=== PATIENT | male | born 1950 | race Caucasian/White ===

== ENCOUNTER → 2019-04-30 07:37 | Outpatient (CLI) | payer MEDICARE, OTHER, SELFPAY ==
--- NOTE | 2019-04-30 07:41 | CDU_ITS ---
Reason For Study: Bilateral Carotid Bruits Rt. Velocities/BP Lt. Velocities/BP Prox CCA 71/7 cm/sec. Prox CCA 103/12 cm/sec. Mid CCA 86/10 cm/sec. Mid CCA 84/12 cm/sec. Dist CCA 80/14 cm/sec. Dist CCA 82/16 cm/sec. Prox ICA 63/18 cm/sec. Prox ICA 87/17 cm/sec. Mid ICA 75/18 cm/sec. Mid ICA 86/19 cm/sec. Dist ICA 51/14 cm/sec. Dist ICA 88/22 cm/sec. Rt. ICA/CCA = 0.9. Lt. ICA/CCA = 1.0. Prox ECA 66 cm/sec. Prox ECA 72 cm/sec. Rt. Vert. 42/5 cm/sec. Lt. Vert. 51/13 cm/sec. Right Extracranial There is intimal thickening but no significant atherosclerotic plaque noted in the right common carotid artery. There is intimal thickening but no significant atherosclerotic plaque noted in the right internal carotid artery. There is no significant atherosclerotic plaque noted in the right external carotid artery. Antegrade flow is noted in the right vertebral artery. Left Extracranial There is intimal thickening but no significant atherosclerotic plaque noted in the left common carotid artery. There is heterogeneous, irregular atherosclerotic plaque noted in the left internal carotid artery. There is intimal thickening but no significant atherosclerotic plaque noted in the left external carotid artery. Antegrade flow is noted in the left vertebral artery. Procedure Carotid Duplex [id number]. Exam performed in department. Interpretation Summary Mild (<50%) stenosis right extracranial internal carotid. Mild (<50%) stenosis left extracranial internal carotid. Flow within the vertebral arteries is antegrade bilaterally. Ordering Physician: Martha Rosenthal Referring Physician: Martha Rosenthal Performed By: Devika Mckeon, MICHAEL, RVT
== END ==
PROVIDERS: Family Provider Internal Medicine; PCP Internal Medicine; Referring Provider Internal Medicine; Visit Provider Internal Medicine
DX: R09.89 Other specified symptoms and signs involving the circulatory and respiratory systems (principal)
CPT/HCPCS: 93880

== ENCOUNTER → 2019-10-16 08:56 | Outpatient (CLI) | payer MEDICARE, OTHER, SELFPAY ==
--- NOTE | 2019-10-16 09:00 | ECHOD_ITS ---
Reason For Study: Aortic murmur Procedure This was a 2D Doppler, Color Flow transthoracic echocardiogram. Exam performed in department. Left Ventricle Normal LV size. The estimated ejection fraction is 65 %. Diastolic function is indeterminate. No regional wall motion abnormalities noted. Right Ventricle Normal RV size. Normal systolic function. Atria Normal left atrium. Normal right atrium. No doppler evidence for ASD. Mitral Valve There is no mitral valve stenosis. Trivial mitral valve insufficiency. Tricuspid Valve There is no tricuspid stenosis. Trivial tricuspid valve insufficiency. Pulmonary artery systolic pressure is 35-40 mmHg. Aortic Valve Moderate diffuse aortic valve thickening. Moderate aortic stenosis. Mild (1+) aortic valve insufficiency. Pulmonic Valve There is no pulmonic valvular stenosis. No pulmonic valve insufficiency. Great Vessels Normal aortic root. Pericardium/Pleural No pericardial effusion. MMode/2D Measurements & Calculations LVIDd: 4.5 cm IVSd: 1.5 cm LVOT diam: 2.2 cm LVIDs: 3.3 cm LVPWd: 1.5 cm LVOT area: 3.8 cm2 RVDd: 3.7 cm FS: 26.3 % Ao root diam: 3.3 cm LAV(MOD-bp): 61.3 ml EDV(MOD-sp4): 145.4 ml LAV(MOD-bp) Indexed: 32.2 ml/m2 ESV(MOD-sp4): 66.0 ml LAV(MOD-sp2): 62.9 ml EF(MOD-sp4): 54.6 % LAV(MOD-sp4): 58.8 ml EDV(MOD-sp2): 140.5 ml SV(MOD-sp4): 79.4 ml SV(MOD-sp2): 74.0 ml EF(MOD-sp2): 52.7 % LA A4 area: 20.8 cm2 LA dimension(2D): 3.5 cm RA A4 area: 14.0 cm2 Doppler Measurements & Calculations MV A max mat: 63.7 cm/sec Lat Peak E' Mat: 8.8 cm/sec Med Peak E' Mat: 5.9 cm/sec Ao V2 max: 363.9 cm/sec AI max mat: 432.9 cm/sec LV V1 max: 138.8 cm/sec Ao max P.0 mmHg AI max P.0 mmHg LV V1 max P.7 mmHg Ao V2 mean: 262.0 cm/sec LV V1 mean P.2 mmHg Ao mean P.2 mmHg AI dec slope: 300.6 cm/sec2 LV V1 mean: 96.8 cm/sec Ao V2 VTI: 88.8 cm AI P1/2t: 421.8 msec LV V1 VTI: 33.6 cm LANA(I,D): 1.4 cm2 LANA(V,D): 1.4 cm2 SV(LVOT): 126.9 ml PA V2 max: 131.4 cm/sec TR max mat: 284.2 cm/sec TR max P.4 mmHg Interpretation Summary The estimated ejection fraction is 65 %. Diastolic function is indeterminate. Trivial tricuspid valve insufficiency. Moderate diffuse aortic valve thickening. Moderate aortic stenosis. Mild (1+) aortic valve insufficiency. Ordering Physician: Martha Rosenthal Referring Physician: Martha Rosenthal Performed By: Shanell Fraire RDCS
== END ==
PROVIDERS: PCP Internal Medicine; Referring Provider Internal Medicine; Visit Provider Internal Medicine
DX: I35.8 Other nonrheumatic aortic valve disorders (principal)
CPT/HCPCS: 93306

== ENCOUNTER → 2021-01-27 11:19 | Outpatient (CLI) | payer MEDICARE, OTHER, SELFPAY ==
--- NOTE | 2021-01-27 11:25 | RAD_ITS ---
STUDY: X-RAY - LUMBAR SPINE REASON FOR EXAM: Male, 70 years old. LOW BACK PAIN TECHNIQUE: 3 view(s) of the lumbar spine were obtained. COMPARISON: None FINDINGS: Normal lumbar lordosis. There is no substantial scoliosis. Minimal anterior listhesis of L5 on S1. There is multilevel endplate spondylosis of the lumbar vertebrae. There is multi-level degenerative disc disease with multi-level disc space narrowing. Facet joint osteoarthritis. The soft tissue structures are unremarkable. RAD/Lumbar Spine 2 or 3 Views IMPRESSION: Degenerative changes of the spine, as detailed above. Electronically Signed: Corby Otero MD at 15:40 EDT , Service support ,
== END ==
PROVIDERS: PCP Internal Medicine
DX: M47.816 Spondylosis without myelopathy or radiculopathy, lumbar region (principal)
CPT/HCPCS: 72100

== ENCOUNTER 2021-02-17 14:30 | Outpatient (RCR) | payer MEDICARE, OTHER, SELFPAY ==
[2020-11-15 08:56] VITALS: BMI 27.1
--- NOTE | 2021-01-03 10:47 | HP.PTEVAL_ITS ---
Patient's Visit Information KAYKAY ABREU is a 70 year old M referred to Physical Therapy by CAILIN BAILEY with a diagnosis of R TKA. Date of Evaluation: 01/03/21 Physical Therapist: Torres Bradley DPT, OCS, CSCS - Visit Plan Frequency: 2-3x /Week Duration: 4-6 Weeks Plan: 2-3x/week for 4-6 weeks for. 1. patellar mobs and rollout to HS and quad and stretch, PROM. 2. strength R LE. 3. gait and stair training. ice as needed(pt has ice machine at home and declined today - Subjective R tka 12/17/20 by / Loyd. Painful and could not walk prior and been screwed up for years. Surgery went well. Pt still in pain 09/18 anterior knee and p osterior. Standing too bart makes it hurt like hell. Sitting hurts anterior knee toothache. Sleeping is interrupted due to pain. Has cold water machine which helps. Pain pills help and take them every 6-8 hours. 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 No set return to work date but thought 3 months. Sits in chair with cold water. aDoes home ex of QS and PROM ext and heel slides. and slowly improving. No other ex except AP. Basic ADLs are done I, tub I, bathroom ad dress I. Like to go to range and shoot as he cannot put up targets, as it is too much walking on [place] ground. Not mowing zero turn 3 acres. Not driving yet. Has steps to basement. Doing one step at a time iwth L. - Objective Walks with cane in R UE I, Walks without cane with good gait pattern and no antalgia although R step length is long. Good bend of knee. Trasnfers I without UE. Steps reciprocal up with rail and L only descending due to ROM deficits. 47 WOMAC. -2 to 85 AROM R knee.0-130 L knee. Patella stiff on R vs L especially distally. Incision is healed well with steristrips in place and dry. HS ad quad max tight. strength is 21# R knee flex and 19# ext. girth 15.5 inches at patella and 18 inches 6 inch sp. 14 second TUG - Goals Goal 1:: 0-120 AROM R knee. Goal Time Frame: 4-6 Weeks Goal 2:: sleep without interruption from knee. Goal Time Frame: 4-6 Weeks Goal 3:: Walk and steps without deficits. Goal Time Frame: 4-6 Weeks Goal 4:: Pt I in management and appropriate HEP Goal Time Frame: 4-6 Weeks Goal 5:: Pt feel 90% back to normal activity including shooting. Goal Time Frame: 4-6 Weeks Goal 6:: Plan to return to work. Goal Time Frame: 4-6 Weeks - Rehabilitation Potential Physical Therapy Diagnosis: R TKA and s/p mobility deficits. Rehabilitation Potential: Good - Anticipated Interventions Patient/Client Instruction: Educate patient on: Condition, Plan of Care For the Purpose of:: To decrease pain, To improve muscle performance and motor function, To increase tolerance to activity/condition/position, To improve ability of physical actions for home/community/work/leisure Therapeutic Exercise to Include: Strength training, Postural training, Flexibilty training, Gait and locomotor training, Passive ROM, Active ROM For the Purpose of:: To decrease pain, To increase ROM, To improve muscle performance and motor function, To increase tolerance to activity/condition/position, To improve ability of physical actions for home/community/work/leisure, To improve gait and locomotor functions Manual Therapy Techniques to Include: Mobilization, Passive ROM, Soft tissue mob ilization For the Purpose of:: To increase ROM Cryotherapy (ice pack, ice massage): Yes For the Purpose of:: To increase ROM Thank you for the opportunity to evaluate your patient. For Medicare and Medicare HMO plans, please review the plan of care and approve it. It will need to be FAXED BACK to us at [phone] for Medicare purposes. For Medicare only, by signing this I certify the plan of care. Please let me know if there are questions or concerns regarding this plan of care. Physician Signature: Date:
--- NOTE | 2021-01-26 13:48 | HP.PTREVAL_ITS ---
CAILIN BAILEY, It has been my pleasure to treat KAYKAY ABREU over the last 10 visits for R TKA. Please see the progress note below for an update on the physical therapy plan of care! Subjective: Doing well, would like more motion. Mows yard with self propelled walk behind. Sleeps well. Walking well, steps tight on way down with R. Pain in the last week 2/10 , 0/10 at rest. Doing walking at home. 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 Objective/Function: 15.5 inch sp. 0-108. 44 WOMAC 12 TUG. Strength. ext 53# and fexion 49#. Walking well, steps some soreness coming down the steps but reciprocal with pain. Improved overall but continue therapy approriate for scarring and diminished ROM as he will need more ROM to do his job comfortably. Plan Plan: changed POC2-3x/week for 3-4 weeks for. 1. rollout and scar massage quad and proximal scar. 2. PROM adn flexion mobs,. 3. low sitting adn trasnfer off floor. Pt to do strengthenin otherwise on his own, please focus on flexion ROM. Goals approp, fair prognosis Balance/Gait/Functional tests - Balance/Special Test Scores Lower Extremity Functional Score: 40 Goals Goal 1:: 0-120 AROM R knee. Goal Time Frame: 4-6 Weeks Goal Progress: 108, approp Goal 2:: sleep without interruption from knee. Goal Time Frame: 4-6 Weeks Goal Progress: Goal Met Goal 3:: Walk and steps without deficits. Goal Time Frame: 4-6 Weeks Goal Progress: some pain descend, approp Goal 4:: Pt I in management and appropriate HEP Goal Time Frame: 4-6 Weeks Goal 5:: Pt feel 90% back to normal activity including shooting. Goal Time Frame: 4-6 Weeks Goal Progress: 85, approp Goal 6:: Plan to return to work. Goal Time Frame: 4-6 Weeks Goal Progress: needs to move near ground Anticipated Interventions Patient/Client Instruction: Educate patient on: Condition, Plan of Care For the Purpose of:: To decrease pain, To improve muscle performance and motor function, To increase tolerance to activity/condition/position, To improve ability of physical actions for home/community/work/leisure Therapeutic Exercise to Include: Strength training, Postural training, Flexibilty training, Gait and locomotor training, Passive ROM, Active ROM For the Purpose of:: To decrease pain, To increase ROM, To improve muscle p erformance and motor function, To increase tolerance to activity/condition/position, To improve ability of physical actions for home/community/work/leisure, To improve gait and locomotor functions Manual Therapy Techniques to Include: Mobilization, Passive ROM, Soft tissue mobilization For the Purpose of:: To increase ROM Cryotherapy (ice pack, ice massage): Yes For the Purpose of:: To increase ROM Please do not hesitate to contact me at [phone] by phone or if you have questions or concerns regarding this new plan of care! Sincerely, Torres Bradley, [place], OCS, CSCS
--- NOTE | 2021-02-17 15:16 | HP.PTDCSUM ---
It has been my pleasure to treat KAYKAY ABREU referred by CAILIN BAILEY, with the diagnosis of R TKA for a total of 16 visit(s). Discharge Date: 02/17/21 Please see the following information for a summary of their discharge status. Subjective: pt sees PT today. pt is RTW in 2 weeks. R knee Pain Intensity (Out of 10): 0 % Improvement: 100 Objective/Function: Recheck w/ PT after this session. pt is meeting all his goals and is getting up and down from the floor now. Indep w/ HEP, no questions. Goal 1:: 0-120 AROM R knee. Goal Progress: 108, approp Goal 2:: sleep without interruption from knee. Goal Progress: Goal Met Goal 3:: Walk and steps without deficits. Goal Progress: some pain descend, approp Goal 4:: Pt I in management and appropriate HEP Goal Progress: Goal Met Goal 5:: Pt feel 90% back to normal activity including shooting. Goal Progress: 85, approp Goal 6:: Plan to return to work. Goal Progress: needs to move near ground Plan: changed POC2-3x/week for 3-4 weeks for. 1. rollout and scar massage quad and proximal scar. 2. PROM adn flexion mobs,. 3. low sitting adn trasnfer off floor. Pt to do strengthenin otherwise on his own, please focus on flexion ROM. Goals approp, fair prognosis If there are questions or concerns regarding this patient's physical therapy, please feel free to call me at [phone]. Thank you for the referral of this patient. Sincerely, Torres Bradley, DPT, OCS, CSCS Balance/Gait/Functional tests - Balance/Special Test Scores Functional Gait Assessment Score: 29 % Disability: 3.3400 Lower Extremity Functional Score: 75 WOMAC Total Score: 1 WOMAC Percentage: 98.9600
== END 2021-02-17 19:00 | disposition home or self-care (01) ==
LOC: PT 14:30
PROVIDERS: PCP Internal Medicine
DX: M17.11 Unilateral primary osteoarthritis, right knee (principal)
CPT/HCPCS: 97110; 97140; 97162; 97164

== ENCOUNTER 2021-09-02 14:00 | Outpatient (RCR) | payer MEDICARE, OTHER, SELFPAY ==
--- NOTE | 2021-06-29 14:40 | HP.PTEVAL_ITS ---
Patient's Visit Information KAYKAY ABREU is a 70 year old M referred to Physical Therapy by Dr. Cedric Tai MD with a diagnosis of R reverse total shoulder arthroplasty. Date of Evaluation: 06/29/21 Physical Therapist: Antonio Sellers DPT - Visit Plan Frequency: 3x /Week Duration: 6-8 weeks Plan: Start with PROM of R shoulder (flexion top 130deg, ER to 30deg), may ice/heat for modalities. Cont. to monitor swelling under incision to ensure that it is reducing. Progress per protocol. IE: HEP: supine ER 2x10x5- demonstrated to spouse, supine shoulder flexion 2x10x5- demonstrated to spouse. seated elbow flexion/extension, wrist sup/pro x30/ea. seated scapular retraction 2x10. standing pendulum x30. above given as HEP - Subjective Pt. is here today for his initial evaluation with diagnosis of S/P R reverse total shoulder arthroplasty. DOS: 06/20/11. Pt. reports battling R shoulder pain for years and is having L shoulder pain, he reports most likely having to have that side replaced at some point. He arrives today with his sling on appropriately. Pt. reports having pain 4/10 in his shoulder. He is sleeping in a reclining chair currently. Pt. denies N/T, no chills, no fever. He has been icing and doing light exercises at home( HEP was given by physician). 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 He does have to do some over head work and lifting up to 60lbs, but more frequently in the 15-20# range. Pt. is hopeful to regain his motion, decrease his pain and get back to work without limitations. - Pain R shoulder Pain Intensity (Out of 10): 5 Pain Intensity Range: 3, 8 - Objective POSTURE: Pt. has R arm in guarded posture in sitting and standing. Slight an terior rotated R shoulder, improves with VCing. PALPATION: Pt. has well healing incision. He does have increased swelling around incision, pocketed like. We will continue to monitor. No signs of infection, except the increased swelling. NEURO: Pt. has normal sensation throughout BUes. ROM: R shoulder: PROM: flexion 95deg, ER 10deg. The rest not tested. L shoulder: AROM: flexion 160deg, abd 165d eg, functional ER C5, functional IR L5. MMT: LUE: 5/5 throughout, but did have associated pain. R shoulder- DNT, R elbow at least 3+/5 biceps did not test over pressure. - Balance/Special Test Scores Quick DASH Score: 90.9075 - Goals Goal 1:: LTG: Pt. to be I with HEP. Goal Time Frame: 4-6 Weeks Goal 2:: STG: pt. to sleep throughout the night without increase in symptoms allowing for increased quality of life. Goal Time Frame: 2 Weeks Goal 3:: STG: Pt. to have increased PROM to 130deg of flexion, and 30deg of ER. Goal Time Frame: 2-4 Weeks Goal 4:: LTG: Pt. to have increased R shoulder PROM to at least 160deg of flexion and abduction, increased PROM of ER to full and IR to full. Goal Time Frame: 4-6 Weeks Goal 5:: LTG: Pt. to have increased R shoulder strength to at least 4+/5 allowing for increased ability to complete ADLs and work related activities. Goal Time Frame: 6-8 Weeks - Rehabilitation Potential Physical Therapy Diagnosis: Pt. has signs and symptoms consistent with R reverse total shoulder arthroplasty. Pt. has subsequent hypomobility, weakness and increased pain. Pt. would benefit from PT to work on his ROM, decreasing pain and eventually progressing his strength in his R shoulder. Rehabilitation Potential: Excellent - Anticipated Interventions Patient/Client Instruction: Educate patient on: Condition, Plan of Care, Risk Factors, Benefits of Fitness Program For the Purpose of:: To improve decision making, To facilitate caregiver knowledge, To improve self management, To prevent re-injury, To improve ability to perform tasks related to life management Therapeutic Exercise to Include: Strength training, Power training, Body mechanics, Postural training, Flexibilty training, Passive ROM, Active ROM, Scapular Strength/Stabilization For the Purpose of:: To decrease pain, To decrease swelling/inflammation, To increase ROM, To improve nutrient delivery to tissue, To increase oxygenation perfusion, To improve muscle performance and motor function, To improve ability to perform ADL's, To improve ability of physical actions for home/community/work/leisure, To improve health of tissue, To decrease soft tissue restriction, To increase flexibility/ROM Manual Therapy Techniques to Include: Mobilization, Passive ROM For the Purpose of:: To decrease pain, To decrease swelling/inflammation, To increase ROM, To improve nutrient delivery to tissue, To increase oxygenation perfusion Cryotherapy (ice pack, ice massage): Yes Thermo therapy (hot pack): Yes Thank you for the opportunity to evaluate your patient. For Medicare and Medicare HMO plans, please review the plan of care and approve it. It will need to be FAXED BACK to us at [phone] for Medicare purposes. For Medicare only, by signing this I certify the plan of care. Please let me know if there are questions or concerns regarding this plan of care. Physician Signature: Date:
--- NOTE | 2021-08-05 12:20 | HP.PTREVAL ---
Dr. Cedric Tai MD, It has been my pleasure to treat KAYKAY ABREU over the last 15 visits for Right reverse TSR - 06/20/21. Please see the progress note below for an update on the physical therapy plan of care! Subjective: Pt. reports overall doing well. He reports having some soreness at times, but overall is doing well. Pt. reports no pain currently. He is to follow up with physician in 2 weeks. Objective/Function: AROM: flexion 165deg, abd 165deg, functional ER L1, functional ER C5. Pt. has slight substitution with with flexion and ER motions. MMT: 4/5 throughout, except ER 4-/5. With his AROM he does tend to have increased shoulder elevation to make up for his weakness. Pt. is overall progressing well with his ROM. Plan Plan: Cont. to work into flexion, scaption, ABD active ROM, controlled strengthening, light initially progressing as tolerated. Focus on deltoid as the muscle group for strength. Balance/Gait/Functional tests - Balance/Special Test Scores Quick DASH Score: 25.0000 Goals Goal 1:: LTG: Pt. to be I with HEP. Goal Time Frame: 4-6 Weeks Goal Progress: Progressing Goal 2:: STG: pt. to sleep throughout the night without increase in symptoms allowing for increased quality of life. Goal Time Frame: 2-4 Weeks Goal Progress: Goal Met Goal 3:: STG: Pt. to have increased PROM to 130deg of flexion, and 30deg of ER. Goal Time Frame: 2-4 Weeks Goal Progress: Goal Met Goal 4:: LTG: Pt. to have increased R shoulder PROM to at least 160deg of flexion and abduction, increased PROM of ER to full and IR to full. Goal Time Frame: 4-6 Weeks Goal Progress: Progressing Goal 5:: LTG: Pt. to have increased R shoulder strength to at least 4+/5 allowing for increased ability to complete ADLs and work related activities. Goal Time Frame: 6-8 Weeks Goal Progress: Progressing Anticipated Interventions Patient/Client Instruction: Educate patient on: Condition, Plan of Care, Risk Factors, Benefits of Fitness Program For the Purpose of:: To improve decision making, To facilitate caregiver knowledge, To improve self management, To prevent re-injury, To improve ability to perform tasks related to life management Therapeutic Exercise to Include: Strength training, Power training, Body mechanics, Postural training, Flexibilty training, Passive ROM, Active ROM, Scapular Strength/Stabilization For the Purpose of:: To decrease pain, To decrease swelling/inflammation, To increase ROM, To improve nutrient delivery to tissue, To increase oxygenation perfusion, To improve muscle performance and motor function, To improve ability to perform ADL's, To improve ability of physical actions for home/community/work/leisure, To improve health of tissue, To decrease soft tissue restriction, To increase flexibility/ROM Manual Therapy Techniques to Include: Mobilization, Passive ROM For the Purpose of:: To decrease pain, To decrease swelling/inflammation, To increase ROM, To improve nutrient delivery to tissue, To increase oxygenation perfusion Cryotherapy (ice pack, ice massage): Yes Thermo therapy (hot pack): Yes Please do not hesitate to contact me at [phone] by phone or if you have questions or concerns regarding this new plan of care! Sincerely, Antonio Sellers DPT
== END 2021-09-02 19:00 | disposition home or self-care (01) ==
LOC: PT 14:00
PROVIDERS: PCP Internal Medicine; Referring Provider Orthopaedic Surgery; Visit Provider Orthopaedic Surgery
DX: Z47.1 Aftercare following joint replacement surgery (principal); Z96.611 Presence of right artificial shoulder joint
CPT/HCPCS: 97110; 97140; 97161; 97164

== ENCOUNTER → 2021-11-18 | Outpatient (CLI) | payer MEDICARE, OTHER, SELFPAY ==
--- NOTE | 2021-11-18 08:48 | ECHOD_ITS ---
Reason For Study: AORTIC VALVE DISEASE Procedure This was a 2D Doppler, Color Flow transthoracic echocardiogram. Patient was scanned in supine position during reflux assessment. The exam was of adequate technical quality. Exam performed in department. Left Ventricle Normal LV size. Moderate concentric left ventricular hypertrophy. Left ventricular systolic function is normal. The estimated ejection fraction is 65 %. No evidence for diastolic dysfunction. No regional wall motion abnormalities noted. Right Ventricle Normal RV size. Normal systolic function. Atria Normal left atrium. Normal right atrium. No doppler evidence for ASD. Mitral Valve There is no mitral annular calcification. Normal mitral valve. Trivial mitral valve insufficiency. Tricuspid Valve Normal tricuspid valve. Trivial tricuspid valve insufficiency. Right ventricular systolic pressure estimated to be 44 mmHg. Aortic Valve Trisinus/trileaflet aortic valve. Moderate diffuse aortic valve thickening. Moderate diffuse aortic valve calcification. Severe aortic stenosis. Trivial aortic valve insufficiency. Pulmonic Valve The pulmonic valve is not well visualized. Great Vessels Normal sized aortic root. Pericardium/Pleural No pericardial effusion. MMode/2D Measurements & Calculations LVIDd: 4.9 cm IVSd: 1.5 cm LVOT diam: 2.0 cm LVIDs: 3.4 cm LVPWd: 1.4 cm LVOT area: 3.1 cm2 RVDd: 4.3 cm FS: 31.2 % Ao root diam: 3.1 cm LAV(MOD-bp): 59.8 ml LVAd ap4: 39.9 cm2 LAV(MOD-bp) Indexed: 32.1 ml/m2 LVLd ap4: 9.5 cm LAV(MOD-sp2): 63.2 ml EDV(MOD-sp4): 139.4 ml LAV(MOD-sp4): 49.9 ml EDV(sp4-el): 141.2 ml LVAs ap4: 21.7 cm2 LVLs ap4: 7.9 cm ESV(MOD-sp4): 52.8 ml ESV(sp4-el): 50.5 ml EF(MOD-sp4): 62.1 % EF(sp4-el): 64.3 % LVAd ap2: 37.4 cm2 SV(MOD-sp4): 86.6 ml SV(MOD-sp2): 87.9 ml LVLd ap2: 9.2 cm EDV(MOD-sp2): 133.8 ml EDV(sp2-el): 128.8 ml LVAs ap2: 19.4 cm2 LVLs ap2: 7.6 cm ESV(MOD-sp2): 45.9 ml ESV(sp2-el): 42.3 ml EF(MOD-sp2): 65.7 % SV(sp4-el): 90.8 ml LA dimension(2D): 4.2 cm LA A4 area: 18.6 cm2 RA A4 area: 20.7 cm2 Doppler Measurements & Calculations MV E max mat: 70.9 cm/sec Lat Peak E' Mat: 12.0 cm/sec Med Peak E' Mat: 8.6 cm/sec MV A max mat: 85.7 cm/sec E/E' lat: 5.9 E/E' med: 8.3 MV E/A: 0.83 Ao V2 max: 480.4 cm/sec AI max mat: 366.3 cm/sec LV V1 max: 120.0 cm/sec Ao max P.6 mmHg AI max P.4 mmHg LV V1 max P.8 mmHg Ao V2 mean: 358.5 cm/sec AI dec slope: 198.9 cm/sec2 LV V1 mean P.0 mmHg Ao mean P.8 mmHg AI P1/2t: 539.5 msec LV V1 mean: 80.8 cm/sec Ao V2 VTI: 128.9 cm LV V1 VTI: 33.4 cm LANA(I,D): 0.80 cm2 LANA(V,D): 0.77 cm2 SV(LVOT): 103.7 ml PA V2 max: 158.9 cm/sec TR max mat: 319.8 cm/sec TR max P.9 mmHg ECHO/Echo Complete Interpretation Summary Left ventricular systolic function is normal. The estimated ejection fraction is 65 %. Moderate concentric left ventricular hypertrophy. Trivial mitral valve insufficiency. Trivial tricuspid valve insufficiency. Severe aortic stenosis. Trivial aortic valve insufficiency. Right ventricular systolic pressure estimated to be 44 mmHg. No evidence for diastolic dysfunction. Ordering Physician: Jb Mckeon Referring Physician: Jb Mckeon Performed By: Kyung Farmer RCS
== END | disposition home or self-care (01) ==
LOC: CVS 08:47
PROVIDERS: PCP Internal Medicine; Referring Provider Nurse Practitioner Family; Visit Provider Nurse Practitioner Family
DX: I35.2 Nonrheumatic aortic (valve) stenosis with insufficiency (principal); I65.23 Occlusion and stenosis of bilateral carotid arteries
CPT/HCPCS: 93306

== ENCOUNTER 2021-12-13 06:57 | Day surgery (SDC) | payer MEDICARE, OTHER, SELFPAY ==
--- NOTE | 2021-12-05 13:55 | RAD_ITS ---
INDICATION: pre-operative eval. EXAMINATION/TECHNIQUE: X-RAY - XR Chest 2 Views COMPARISON: None. FINDINGS: The lungs are clear. Tortuous and calcified thoracic aorta. The heart is not enlarged. No pleural effusion or pneumothorax. Degenerative changes of the thoracic spine and shoulders. Right total shoulder arthroplasty. RAD/Chest PA and Lateral IMPRESSION: No acute radiographic abnormalities. Electronically Signed: Demarcus Schrader MD at 16:45 EDT ,
[2021-12-05 15:13] LABS: Absolute Lymphocyte Count 1.26 X10^3/uL (0.83-4.51); Absolute Neutrophil Count 8.4 X10^3/uL (2.0-7.7); Basophil# 0.07 X10^3/uL; Basophil% 0.7 % (0-1); Eosinophil# 0.11 X10^3/uL; Hematocrit 34.3 % (40-54); Hemoglobin 11.9 g/dL (13.0-16.5); Lymphocyte # 1.26 X10^3/ul (0.83-4.51); Mean Corp Hgb Conc 34.7 g/dL (32-36); Mean Corpuscular Hgb 32.9 pg (27.0-32.0); Mean Corpuscular Volume 94.8 fL (80-94); Mean Platelet Vol. 9.8 fl (6.2-12.0); Monocyte# 0.62 X10^3/uL; Monocyte% 5.9 % (0-10); NRBC Flagged by Analyzer 0 % (0-5); Neutrophil % 79.7 % (47-70); Platelet Count 180 K/mm3 (150-450); RBC Distribution Width CV 13.2 % (11.6-14.6); RBC Distribution Width SD 45.1 fl (35.1-43.9); Red Blood Count 3.62 M/mm3 (4.6-6.2); White Blood Count 10.5 K/mm3 (4.4-11.0)
[2021-12-05 15:20] LABS: Prothrombin Time (Protime)PT. 12.4 SECONDS (11.7-14.9)
[2021-12-05 15:21] LABS: Partial Thromboplast Time 26.6 Seconds (24.1-36.2)
[2021-12-05 15:49] LABS: Anion Gap 9 (5-15); BUN 31 mg/dL (7-18); BUN/Creat Ratio 16.4 RATIO (10-20); Calcium,Total 8.7 mg/dL (8.5-10.1); Chloride 104 mmol/L (98-107); Creatinine, Serum 1.89 mg/dL (0.70-1.30); EST Glomerular Filtration Rate 38 mL/min (>60); Est Glom Filt Rate - Afr Amer 46 mL/min (>60); Glucose 108 mg/dL (74-106); Potassium 4.3 mmol/L (3.5-5.1); Sodium Level 137 mmol/L (136-145)
[2021-12-09 10:30] VITALS: BMI 27.1
--- NOTE | 2021-12-10 11:57 | PCM.HP.BLA ---
History and Physical Date of Admission: 12/13/21 [facility] [address] [place], [place] [address] OFFICE VISIT Date of Service:? 06/06/21 MR#: [id number] Acct: [id number] Name:KAYKAY LEWIS Rep #: [id number] : 1950 Provider: JOSE Mckeon Age/Sex:? 70/M Location: [facility] [place] Status: Signed HPI [facility] History of Present Illness Details:? This is a 70-year-old white male who presents today for outpatient cardiovascular consultation based upon concerns of underlying aortic valve stenosis superimposed on hyperlipidemia and hypertension. He still states in June, he will be undergoing right shoulder replacement with Dr. Cedric Tai He states at Amlodipine 10mg he noted lower extremity edema and thus has reduced it to 5mg PO daily. He denies chest, arm, jaw, or neck discomfort. He denies symptoms of shortness of breath with exertion, shortness of breath at rest, orthopnea, PND, sudden weight gain, or bilateral lower extremity edema. He denies chronic cough. He states intermittent dizziness and lightheadedness. This is noted with position change. He does not lower blood pressure. He denies palpitations, lightheadedness, near syncope, or syncopal episodes. He denies claudication issues. He denies fever or chills. He denies blood in urine, blood in stool, or epistaxis. He denies myalgia. He denies unexplainable fatigue. His exercise tolerance is stable. Intake Vital Signs ? 06/06/2109:00 Height 5 ft 7 in Weight: 170 lb BMI 26.6 BP 122/62 H Blood Pressure Location Lt brachial Position Sitting Respiration 14 Pulse 74 Pulse Source Auscultation Intake Visit Reasons:?6 m fu Allergies No Known Allergies Allergy (Unverified 11/15/20 09:09) Medications aspirin 81 mg tablet,delayed release 81 mg PO DAILY 11/12/19 [History Confirmed 06/06/21] atorvastatin 20 mg tablet 20 mg PO QHS 11/12/19 [History Confirmed 06/06/21] folic acid 1 mg tablet 1 mg PO DAILY 11/12/19 [History Confirmed 06/06/21] hydrocodone-acetaminophen 5-325mg 5mg-325mg 1 tab PO Q6H PRN 11/12/19 [History Confirmed 06/06/21] methotrexate sodium 10 mg tablet 10 mg PO QWEEK 11/12/19 [History Confirmed 06/06/21] omeprazole 20 mg tablet,delayed release 20 mg PO DAILY 11/12/19 [History Confirmed 06/06/21] atenolol 25 mg tablet 25 mg PO DAILY 08/30/20 [History Confirmed 06/06/21] hydrochlorothiazide 25 mg tablet 25 mg PO DAILY #90 tab 01/26/21 [Rx Confirmed 06/06/21] amlodipine 5 mg tablet 5 mg PO DAILY #180 tab 04/27/21 [Rx Confirmed 06/06/21] lisinopril 20 mg tablet 20 mg PO DAILY? tab 06/06/21 [History Confirmed 06/06/21] PFSH Medical History?(Updated 06/06/21 @ 09:26 by Jb Mckeon PROJECT CONSULTANT, PROJECT CONSULTANT-C) Bilateral carotid artery stenosis Chronic pain Essential hypertension GERD (gastroesophageal reflux disease) Nonrheumatic aortic (valve) stenosis with insufficiency Pure hypercholesterolemia Rheumatoid arthritis with inflammatory polyarthropathy Surgical History?(Updated 06/06/21 @ 09:11 by Jb Mckeon PROJECT CONSULTANT, PROJECT CONSULTANT-C) History of appendectomy History of tonsillectomy History of total right knee replacement History of vasectomy Family History?(Updated 06/06/21 @ 09:11 by Jb Mckeon PROJECT CONSULTANT, PROJECT CONSULTANT-C) Brother Hypertension Social History? Smoking Status:? Former smoker how long ago did patient quit smoking:? 1986 alcohol intake:? current alcohol intake frequency: 0-2 drinks per day substance use type:? does not use caffeine:? Yes Type: coffee Number of servings: 2 ROS Const Const: Negative for fatigue, weakness, body ache, fever(s) or chills ENT ENT: Positive for dizziness; Negative for Nosebleed/epistaxis Cardio Chest Pain: No Palpitations: No Edema: None Muscle aches with walking: None Resp Respiratory: Negative for SOB with activity, SOB at rest, SOB orthopnea\SOB lying down, Cough or paroxysmal nocturnal dyspnea GI GI: Negative nausea, vomiting blood/hematemesis, bright, red blood in stools or black,tarry stools : Negative for hematuria or frequent nighttime urination/ nocturia Musc Musc: Negative for muscle aches/ myalgia Skin Skin: Negative non-healing lesions or rash Neuro Neuro: Positive for dizziness and lightheadedness; Negative for near syncope, syncope, orthostatic symptoms or weakness Endo Endo: Negative for fatigue Allergy Allergy/Immunology: Negative for rash Cardiology Exam Const Appearance: cooperative, healthy appearing, comfortable and no acute distress Nutritional Appearance: average body habitus and well nourished Orientation: alert, awake and oriented x3 Head Head: normal to inspection Ears: hearing grossly normal bilaterally Nose: external nose normal Face and Sinus: face symmetric Mouth: oral mucosae normal Eyes General: appearance normal, both eyes and all related structures Eyelids: eyelids normal EOM: EOM intact bilaterally Neck Neck: normal visual inspection and no JVD Carotids: normal carotid upstroke Chest Chest inspection: normal inspection of the chest, symmetric chest movement and normal respiratory effort; Negative cough Auscultation: Bilateral: Clear to Auscultation Cardio Rate: regular rate Rhythm: regular rhythm Heart sounds: S1 normal, S2 normal and murmur; Negative rub or gallop Murmur: Grade 3/6, soft, crescendo-decrescendo and LEONCIO loudest primary aortic area GI GI: normal to inspection Neuro General: patient alert, patient awake, patient oriented x3 and CN's II-XI intact bilaterally Skin Skin: no rashes or lesions noted Extremities Pulses: Normal: Right Posterior Tibial Pulse, Left Posterior Tibial Pulse, Right Radial Pulse and Left Radial Pulse Lower Extremity Edema: None: Bilateral Psych Psychological: normal affect Supplemental Info Supplemental Information Echocardiogram: 10-16-2019 Interpretation Summary The estimated ejection fraction is 65 %. Diastolic function is indeterminate. Trivial tricuspid valve insufficiency. Moderate diffuse aortic valve thickening. Moderate aortic stenosis. Mild (1+) aortic valve insufficiency. Carotid artery duplex study: 04/30/2019 Interpretation Summary Mild (<50%) stenosis right extracranial internal carotid. Mild (<50%) stenosis left extracranial internal carotid. Flow within the vertebral arteries is antegrade bilaterally. In 2016, based upon the report he was noted to have a left ventricle which was thought to be normal with an LVEF of 55 to 65%, a probably trileaflet moderately calcified aortic valve with mild to moderate stenosis and mild regurgitation with an aortic valve area reported at that time of 1.88 cm? with a peak gradient of 37 mmHg and a mean gradient of 21 mmHg.? The left atrium was reported as mildly dilated.? There was notation of trivial TR and an estimated RV systolic pressure of 30 mmHg. Labs: ?? ? No Data to Display Diagnostics: ?? ? Electrocardiogram ? Echocardiogram ? Pulmonary: ?? ? No Data to Display Assessment and Plan Assessment and Plan (1) Nonrheumatic aortic (valve) stenosis with insufficiency: ?Status:?Chronic ? ? ? Orders:?Orders: ? Echo Complete 6 Months ?Plan: His last echocardiogram in October 2019 showed an ejection fraction of 65% and moderate aortic valve stenosis with mild aortic valve insufficiency.? This appears stable on history and exam.? He was asked to continue current medical therapy and we will continue to monitor.? We will repeat echocardiogram prior to next office appointment for aortic valve stenosis surveillance unless indicated sooner. (2) Essential hypertension: ?Status:?Chronic ?Plan: Patient's blood pressure is well-controlled.? However, he does acknowledge episodes of lightheaded dizziness associate with lower blood pressure readings with systolics 80 mmHg.? Based on symptoms and lower readings, he was asked to reduce his lisinopril 20 mg p.o. daily.? He was asked to continue to monitor blood pressure and contact office with any new concerns for further medication adjustment. (3) Pure hypercholesterolemia: ?Status:?Chronic ?Plan: He states this is being monitored by primary care physician.? He will continue current statin medication.? His most recent lipid panel will be requested for continuity of care. (4) Preop cardiovascular exam: ?Status:?Acute ?Plan: From a cardiovascular standpoint, he may proceed with orthopedic surgery.? His last echocardiogram in October 2019 showed ejection fraction 65%, moderate aortic valve stenosis, and mild aortic valve insufficiency.? This appears stable.? He denies any exertional symptoms.? At this time, his dizziness is thought to be due to lower blood pressure.? He was asked to continue to follow with surgery team's recommendations regarding aspirin therapy.? Typically, this is held approximately 7-10 days prior to surgery if required. Plan Details Other Orders: ?Orders: ? Echo Complete 6 Months I65.23 ? Additional Comments: Thank you for allowing us to participate in the patients plan of care, if you have any questions please do not hesitate to call. This note was generated using a voice recognition system and there may be incorrect words, spelling or punctuation that were not noted when reviewing the office note prior to saving. Follow Up: ? ? Dr. Rosenthal?(Lipids) ? ? Keep as is?(PFM) Coding Level of Care Code Off vis,est,level 3 Diagnoses Nonrheumatic aortic (valve) stenosis with insufficiency? I35.2 Essential hypertension? I10 Pure hypercholesterolemia? E78.00 Preop cardiovascular exam? Z01.810 Coding Level of Care Code Off vis,est,level 3 Diagnoses Nonrheumatic aortic (valve) stenosis with insufficiency? I35.2 Essential hypertension? I10 Pure hypercholesterolemia? E78.00 Preop cardiovascular exam? Z01.810 06/06/21 0935 <Electronically signed by Jb Mckeon NP, NP-C> Date Jb Mckeon NP PROJECT CONSULTANT-C Cosigner Signature: Date (if applicable) CC:? Dr. Martha Rosenthal, DO ~ Assessment & Plan Addt'l Comments Addendum: 12-13-2021: The patient presented for outpatient cardiovascular follow-up with transthoracic echocardiogram on 11-18-2021. The results of the study are noted below. Reason For Study: AORTIC VALVE DISEASE Procedure This was a 2D Doppler, Color Flow transthoracic echocardiogram. Patient was scanned in supine position during reflux assessment. The exam was of adequate technical quality. Exam performed in department. Left Ventricle Normal LV size. Moderate concentric left ventricular hypertrophy. Left ventricular systolic function is normal. The estimated ejection fraction is 65 %. No evidence for diastolic dysfunction. No regional wall motion abnormalities noted. Right Ventricle Normal RV size. Normal systolic function. Atria Normal left atrium. Normal right atrium. No doppler evidence for ASD. Mitral Valve There is no mitral annular calcification. Normal mitral valve. Trivial mitral valve insufficiency. Tricuspid Valve Normal tricuspid valve. Trivial tricuspid valve insufficiency. Right ventricular systolic pressure estimated to be 44 mmHg. Aortic Valve Trisinus/trileaflet aortic valve. Moderate diffuse aortic valve thickening. Moderate diffuse aortic valve calcification. Severe aortic stenosis. Trivial aortic valve insufficiency. Pulmonic Valve The pulmonic valve is not well visualized. Great Vessels Normal sized aortic root. Pericardium/Pleural No pericardial effusion. MMode/2D Measurements & Calculations LVIDd: 4.9 cm? IVSd: 1.5 cm? LVOT diam: 2.0 cm LVIDs: 3.4 cm? LVPWd: 1.4 cm ? LVOT area: 3.1 cm2 RVDd: 4.3 cm ? FS: 31.2 % ? Ao root diam: 3.1 cm ? LAV(MOD-bp): 59.8 ml? LVAd ap4: 39.9 cm2 ? LAV(MOD-bp) Indexed: 32.1 ml/m2 ? LVLd ap4: 9.5 cm ? LAV(MOD-sp2): 63.2 ml ? EDV(MOD-sp4): 139.4 ml ? LAV(MOD-sp4): 49.9 ml ? EDV(sp4-el): 141.2 ml ? LVAs ap4: 21.7 cm2 ? LVLs ap4: 7.9 cm ? ESV(MOD-sp4): 52.8 ml ? ESV(sp4-el): 50.5 ml ? EF(MOD-sp4): 62.1 % ? EF(sp4-el): 64.3 % ? LVAd ap2: 37.4 cm2 ? SV(MOD-sp4): 86.6 ml? SV(MOD-sp2): 87.9 ml LVLd ap2: 9.2 cm EDV(MOD-sp2): 133.8 ml EDV(sp2-el): 128.8 ml LVAs ap2: 19.4 cm2 LVLs ap2: 7.6 cm ESV(MOD-sp2): 45.9 ml ESV(sp2-el): 42.3 ml EF(MOD-sp2): 65.7 % ? SV(sp4-el): 90.8 ml? LA dimension(2D): 4.2 cm ? LA A4 area: 18.6 cm2 ? RA A4 area: 20.7 cm2 Doppler Measurements & Calculations MV E max mat: 70.9 cm/sec? ? ? Lat Peak E' Mat: 12.0 cm/sec ? ? ? Med Peak E' Mat: 8.6 cm/sec MV A max mat: 85.7 cm/sec? ? ? E/E' lat: 5.9? E/E' med: 8.3 MV E/A: 0.83 ? Ao V2 max: 480.4 cm/sec? AI max mat: 366.3 cm/sec ? LV V1 max: 120.0 cm/sec Ao max P.6 mmHg ? AI max P.4 mmHg ? LV V1 max P.8 mmHg Ao V2 mean: 358.5 cm/sec ? ? ? AI dec slope: 198.9 cm/sec2? LV V1 mean P.0 mmHg Ao mean P.8 mmHg? AI P1/2t: 539.5 msec ? LV V1 mean: 80.8 cm/sec Ao V2 VTI: 128.9 cm ? LV V1 VTI: 33.4 cm LANA(I,D): 0.80 cm2 LANA(V,D): 0.77 cm2 ? SV(LVOT): 103.7 ml ? PA V2 max: 158.9 cm/sec? TR max mat: 319.8 cm/sec ? TR max P.9 mmHg ECHO/Echo Complete Interpretation Summary Left ventricular systolic function is normal. The estimated ejection fraction is 65 %. Moderate concentric left ventricular hypertrophy. Trivial mitral valve insufficiency. Trivial tricuspid valve insufficiency. Severe aortic stenosis. Trivial aortic valve insufficiency. Right ventricular systolic pressure estimated to be 44 mmHg. No evidence for diastolic dysfunction. The patient's case was discussed and reviewed with the patient. A recommendation was made to proceed with further evaluation of the patient's aortic valve anatomy and physiology/cardiovascular status with a diagnostic cardiac catheterization in anticipation of a tertiary care center evaluation for aortic valve replacement either percutaneously with TAVR versus surgically depending upon his overall cardiovascular findings. The procedure and risk were discussed with the patient. He was agreeable to this approach. In the interim, the patient denies a history of ongoing angina pectoris. There is been no report of obvious CHF or pulmonary edema. He has had no report of near syncope or syncope. He does state that he has noticed he becomes more short of breath and dyspneic and fatigued with activity including attempts at long walks. Thus he states he has minimized his activity. On examination he appears to be stable and in no acute distress. His respiratory examination demonstrates his lungs to be clear to auscultation and percussion bilaterally. His cardiovascular examination demonstrates a regular rhythm with a normal S1, diminished S2, and a grade 2/6 to 3/6 crescendo decrescendo systolic murmur at the lower left sternal border rating toward the LVOT/sternal notch area. Peripheral pulses: Carotid arteries: Delayed upstroke His previous noninvasive cardiovascular studies are as noted. At the present time the concern is the patient's aortic valve stenosis, which by transthoracic echocardiogram appears to be severe based upon his aortic valve peak velocity, his aortic valve mean gradient, and his aortic valve area, and the need for additional cardiovascular diagnostic studies with diagnostic cardiac catheterization which may provide additional information about his aortic valve anatomy and physiology but also with respect to his coronary anatomy in anticipation of a tertiary care center evaluation for aortic valve replacement. As noted above the cardiac catheterization procedure and risk were discussed with the patient. He was agreeable to this approach. Of note, with respect to the patient's preprocedure laboratory studies, there does appear to be an element of renal insufficiency. This will be taken into consideration with future adjustment of medications. It also be taken into consideration with respect to his cardiac catheterization procedure with respect to IV fluids and IV contrast use. The patient also has a history of hyperlipidemia. He will continue medical therapy as deemed appropriate. The patient has a history of hypertension. He will continue medical therapy as deemed appropriate with adjustment of medications taking into consideration his renal insufficiency. The patient has a history of carotid artery disease. He has undergone evaluation with a carotid artery duplex study in April 2019. At that time, per the peripheral vascular surgery report, his carotid artery disease was reported as mild. This note was generated using a voice recognition system and there may be incorrect words, spelling or punctuation that were not noted when reviewing the office note prior to saving.
[2021-12-13 09:31] LABS: Blood Gas Specimen Type VEN; VBG BASE EXCESS -1 mmol/L (-1.0-3.5); VBG BASE EXCESS 0 mmol/L (-1.0-3.5); VBG Bicarbonate 24 mmol/L (22-26); VBG Bicarbonate 25 mmol/L (22-26); VBG PO2 41 mmHg (25-40); VBG PO2 45 mmHg (25-40); VBG SO2 77 % (50-70); VBG SO2 81 % (50-70); VBG TCO2 26 mmol/L (23-33); VBG pCO2 38.8 mmHg (41-51); VBG pCO2 39.9 mmHg (41-51); VBG pH 7.39 (7.32-7.42); VBG pH 7.41 (7.32-7.42)
[2021-12-13 09:35] LABS: Base Excess -1 mmol/L (-2 to +2); Bicarbonate 23.9 mmol/L (22-26); Blood Gas Specimen Type ART; PO2 87 mmHG (75-100); SO2 97 % (95-99); Total Carbon Dioxide 25 mmol/L; pH 7.42 (7.35-7.45)
[2021-12-13 09:46] LABS: Blood Gas Specimen Type VEN; VBG BASE EXCESS -1 mmol/L (-1.0-3.5); VBG Bicarbonate 24 mmol/L (22-26); VBG PO2 42 mmHg (25-40); VBG SO2 76 % (50-70); VBG TCO2 26 mmol/L (23-33); VBG pH 7.37 (7.32-7.42)
--- NOTE | 2021-12-13 10:11 | CL.D_ITS ---
Patient Name: KAYKAY ABREU Study Date: 12/13/2021 Performing: King Villegas MD Ht: 66.92 inches 170 cm : 1950 Wt: 171.96 lbs 78 kg Age: 71 Gender: male BSA: 1.89 PROCEDURE(S) PERFORMED [id number])RHC/LHC/COR/LV CLINICAL PROFILE AND INDICATIONS Indications: Valvular Disease, Pre-Operative Evaluation Heart Failure: None Stress/Imaging Stress/Image Study Performed: No Angina Classification Anginal Classification w/in 2 Weeks: No symptoms CAD Presentations: No Sxs, no angina. CONCLUSIONS Right heart pressures - mildly elevated RVSP Intracardiac shunting: None Normal Left Ventricular End Diastolic Pressure Normal LV size, wall motion,and systolic function LVEF: by LV gram 65 % Normal coronary arteries Aortic Valve Calcification- Severe Aortic Valve Stenosis- Severe RECOMMENDATIONS Risk factor modification Medical therapy Surgery consult for valvular disease - possible TAVR DESCRIPTION OF PROCEDURE The patient arrived to the procedure lab. The risks and benefits of the procedure as well as a full d escription of our services here and current unavailability of surgical backup were fully explained to the patient and/or their significant other prior to the catheterization. The Timeout was completed, verifying the correct patient and procedure. The patient's procedural site was prepped and draped in the usual fashion. Local anesthetic was given subcutaneously to right radial region with Lidocaine 2% . Local anesthetic was given subcutaneously to right brachial region with Lidocaine 2%. Using a modif ied Seldinger technique, arterial access was obtained via the right radial artery, a 6Fr sheath was i nserted. Venous access was obtained via the right brachiocephalic vein, a 7Fr sheath was inserted. A 7Fr thermal dilution catheter was inserted and right heart pressures were recorded, it was then advan ha to PA position for cardiac outputs. O2 saturations were then obtained. Thermal dilution cardiac outputs were then recorded. Simultaneous pressures were then recorded. Left Ventricu lography was performed in OLIVAS projection using a 5 Fr. Pigtail catheter. LV to AO pullback pressures were then recorded. The Thermal dilution catheter was then removed. Left Coronary Artery selective an giography was performed in multiple views using a 5 Fr. 4.0 Woden catheter. Right Coronary Artery jaison ective angiography was then performed in multiple views using a 5 Fr. 4.0 Woden catheter. Right Coron linda Artery selective angiography was then performed in multiple views using a 5 Fr. JR 4 catheter.The arterial sheath was pulled and a TR Band was applied for hemostasis, sheath was flushed and aspirate d before D/C. 10cc of air. The venous sheath was then pulled and manual compression applied until hem ostasis achieved. sheath was flushed and aspirated before D/C CORONARY ANGIOGRAPHY DOMINANCE: Left Dominant LEFT HEART ASSESSMENT Left Ventricular Ejection Fraction: by LV Gram 65 % Normal LV wall motion Normal Left Ventricular End Diastolic Pressure LVEDP: 9 mmHg RIGHT HEART ASSESSMENT Thermal CO: 6.68 Thermal CI: 3.53 PW: 04/18 5 PA: 02/12 11 RV: 31/-1 3 RA: 10/10 0 PVR: 72 Aortic Valve Area: 1.03 Aortic Valve Index: 0.55 Aortic Valve Mean Gradient: 52.5 Mitral Valve Area: >3.50 Mitral Valve index: 1.85 Mitral Valve Mean Gradient: 13.5 Right Heart pressures - elevated (mild elevation of the RVSP) Intracardiac shunting: None LEFT MAIN: Angiographically normal LEFT ANTERIOR DESCENDING ARTERY: Angiographically normal CIRCUMFLEX ARTERY: Angiographically normal RAMUS: Angiographically normal RIGHT CORONARY ARTERY: Angiographically normal VALVE FINDINGS: Aortic Valve Calcification - severe Aortic Valve Stenosis - severe AORTIC ROOT: Angiographically normal COMPLICATIONS No Complications PROCEDURE MEDICATIONS Fentanyl 50 mcg IV Versed 1 mg IV Baby Aspirin (81mg) 1 Tabs PO @ 12/13/2021 07:16:50 Heparin given IA 12/13/2021 09:24:20 Verapamil 2.5mg, Ntg 100mcgs, 3000 units of Heparin given IA 12/13/2021 09:24:20 IV Fluids: .9 NaCl IV started @ 100 ml/hr 12/13/2021 07:16:59 SUMMARY OF HEMODYNAMIC DATA Time AIR REST ECG 07:16:00 RA 10/10 (0) 09:18:40 RV 31/-1, 3 09:18:58 PW 04/18 (5) PV 09:19:56 PA 02/12 (11) PA 09:20:13 LV 189/-15, 6 09:28:40 PW 04/22 (6) 09:28:40 LV 189/-14, 9 09:28:47 PW 9/7 (6) 09:28:47 LV 182/-8, 15 09:30:20 PW 15/16 (11) 09:30:20 LV 182/-11, 10 09:30:47 PW 9/8 (6) 09:30:47 LVp 181/1, 22 09:31:08 AOp 101/44 (66) 09:31:13 AO 99/44 (64) SA 09:31:57 PA 27/10 (15) 09:32:17 RV 38/-1, 6 09:32:31 RA 7/4 (3) 09:32:49 AO 83/44 (61) 09:37:47 Valve Area (c P-P/ms Time AIR REST 3.50 09:28:40 1.03 09:31:08 Type SV CO (l/m) CI (l/m/ HR Time AIR REST Thermal 111.30 6.68 3.53 60 07:15:50 Label % O2 Pres/Loc Time AIR REST IVC 80 SV 09:38:00 PA 77 PA 09:38:05 AO 97 PV 09:38:09 SVC 75 09:38:14 Signed By King Villegas MD On 12/13/2021 10:10:18 King Villegas MD
== END 2021-12-13 14:15 | disposition home or self-care (01) ==
LOC: CLSP 06:59
PROVIDERS: Nurse Practitioner Family; PCP Internal Medicine; Referring Provider Internal Medicine Cardiovascular Disease; Visit Provider Internal Medicine Cardiovascular Disease
DX: I35.2 Nonrheumatic aortic (valve) stenosis with insufficiency (principal); M06.4 Inflammatory polyarthropathy; I10 Essential (primary) hypertension; E78.00 Pure hypercholesterolemia, unspecified; K21.9 Gastro-esophageal reflux disease without esophagitis; Z79.82 Long term (current) use of aspirin; Z79.899 Other long term (current) drug therapy; Z87.891 Personal history of nicotine dependence
CPT/HCPCS: 36415; 71046; 80048; 82803; 85025; 85610; 85730; 93005; 93456; 99152; 99153; J7030; C1751; C1769; C1894; Q9967

== ENCOUNTER 2022-04-06 14:23 | Emergency (ER) | payer MEDICARE, OTHER, SELFPAY ==
[2022-04-06 14:23] VITALS: BP 160/85; PULSE 74; RESP 16; TEMP 36.7; O2SAT 97; BMI 27.6
--- NOTE | 2022-04-06 14:38 | RAD_ITS ---
STUDY: X-RAY - RIGHT HAND, ATTENTION FOURTH FINGER REASON FOR EXAM: Male, 71 years old. Laceration with digit distally. TECHNIQUE: 3 view(s) of the finger were obtained. COMPARISON: None. FINDINGS: Normal metacarpal head. Normal metacarpophalangeal joint. Normal proximal phalanx. Normal middle phalanx. Tiny avulsion fracture at the tuft of the distal phalanx of the fourth digit with overlying soft tissue laceration. Normal proximal interphalangeal joint. Normal distal interphalangeal joint. RAD/Finger(s) Min 2 Views IMPRESSION: Tiny avulsion fracture at the tuft of the distal phalanx of the fourth digit with overlying soft tissue laceration. Electronically Signed: Corby Otero MD at 15:11 EDT ,
--- NOTE | 2022-04-06 14:38 | EX.ED.GENINJ ---
HPI History of Present Illness Chief Complaint: Laceration Informant: patient Narrative Narrative: 2-year-old male presenting to the emergency department with a right hand injury. The patient states that he was working on his lawnmower and the deck came down and injured the right ring finger. He notes that most of the nail is gone and that is bleeding. Unknown last tetanus. Tetanus Immunization: Unknown [facility] Medical History Bilateral carotid artery stenosis Chronic pain Essential hypertension GERD (gastroesophageal reflux disease) History of left heart catheterization (LHC) (~12/13/21) History of transcatheter aortic valve replacement (TAVR) (~02/09/22) Nonrheumatic aortic (valve) stenosis with insufficiency Pure hypercholesterolemia Rheumatoid arthritis with inflammatory polyarthropathy Home Medications aspirin 81 mg tablet,delayed release (Adult Low Dose Aspirin) 81 mg PO DAILY 11/12/19 [History Last Taken 12/13/21] atorvastatin 20 mg tablet 20 mg PO QHS 11/12/19 [History Last Taken 12/13/21] folic acid 1 mg tablet 1 mg PO DAILY 11/12/19 [History Last Taken Unknown] omeprazole 20 mg tablet,delayed release 20 mg PO DAILY 11/12/19 [History Last Taken 12/13/21] atenolol 25 mg tablet 25 mg PO DAILY ord by Dr. Rosenthal 08/30/20 [History Last Taken 12/13/21] lisinopril 20 mg tablet 20 mg PO DAILY 06/06/21 [History Last Taken 12/13/21] hydrochlorothiazide 25 mg tablet 25 mg PO DAILY #90 tabs 11/21/21 [Rx Last Taken 12/13/21] Lactobacillus rhamnosus GG 10 billion cell capsule (Culturelle) 1 cap PO DAILY 12/23/21 [History Last Taken Unknown] cholecalciferol (vitamin D3) 125 mcg (5,000 unit) tablet (Vitamin D3) 125 mcg PO DAILY 12/23/21 [History Last Taken Unknown] methotrexate sodium 2.5 mg tablet 15 mg PO QWEEK 12/23/21 [History Last Taken Unknown] oxycodone-acetaminophen 5 mg-325 mg tablet 1 tab PO TID PRN 12/23/21 [History Last Taken Unknown] amlodipine 10 mg tablet 10 mg PO DAILY #90 tabs 04/06/22 [Rx Last Taken Unknown] cephalexin 500 mg capsule 500 mg PO Q6 #20 CAPSULES 04/06/22 [Rx Last Taken Unknown] Allergy/AdvReac Type Severity Reaction Status Date / Time No Known Allergies Allergy Verified 04/06/22 14:23 Family History Brother Hypertension Surgical History History of appendectomy History of tonsillectomy History of total right knee replacement History of vasectomy Social History Smoking Status: Former smoker how long ago did patient quit smokin alcohol intake: current alcohol intake frequency: 0-2 drinks per day substance use type: does not use caffeine: Yes Type: coffee Number of servings: 2 ROS ROS ED Constitutional Constitutional ED: Denies chills or weight loss Eyes Eyes: Denies change in vision or diplopia ENT ENT ED: Denies ear pain, rhinorrhea or sore throat Cardiovascular Cardiovascular: Denies chest pain, orthopnea, palpitations or racing heartbeat Respiratory/Chest Respiratory/Chest: Denies cough, dyspnea or orthopnea Gastrointestinal Gastrointestinal: Denies abdominal pain, diarrhea, nausea or vomiting Genitourinary Genitourinary ED: Denies dysuria, hematuria or urinary frequency Musculoskeletal Musculoskeletal: Reports other Details: See HPI ; Denies arthralgias or myalgias Integumentary Denies abscess or rash Neurologic Neurologic: Denies headache(s) or weakness Psychiatric Psychiatric: Denies anxiety, depression, suicidal ideation or suicidal thoughts Endocrine Endocrinology: Denies polydipsia, polyphagia or polyuria Allergic/Immunologic Allergic/Immunologic ED: Denies mouth swelling, tongue swelling or urticaria EXAM Physical Exam Const Vital Signs: 04/06/22 14:23 Temperature 98.1 F Temperature Source Temporal Pulse Rate 74 Respiratory Rate 16 Blood Pressure 160/85 H Blood Pressure Mean 110 Pulse Ox 97 Oxygen Delivery Method Room Air Positive well nourished and well developed General Appearance ED: well developed HEENT Reports normocephalic, head/scalp atraumatic and moist mucous membranes Eyes PERRL and EOMs intact bilaterally Neck no lymphadenopathy, supple and no JVD Resp normal respiratory effort and clear to auscultation bilaterally Cardio regular rate, regular rhythm and no murmurs GI normal to inspection, nondistended, normoactive bowel sounds and non-tender Palpation: soft Back/Spine no CVA tenderness and normal ROM Extremity normal to inspection General Extremety ED: Negative for edema General Extremity: Negative for edema Neuro oriented x3 and CN's II-XII intact bilaterally Sensorium / Orientation: alert Motor Exam: strength 5/5 throughout Psych mental status grossly normal Mood & Affect: Negative for depressed or tearful Skin no rashes or lesions noted and no wounds MDM MDM MDM Narrative Medical decision making narrative: My impression of the finger x-ray is a small avulsion fracture at the tuft of the distal phalanx. Radiology concurs. The finger was digitally blocked using bupivacaine. Once adequate anesthesia was obtained most of the nail was removed but the proximal point appeared uninjured and was able to be salvaged. There is complete removal of the nail bed that is exposed. The wound was washed with Shur-Clens closed using simple interrupted 5-0 Ethilon sutures. He will be placed on Keflex. Stitches will need to be removed in 10 days. He was advised that the nail may or may not return to its baseline. Radiography Diagnostic Testing: Clinical Impression(s) from Imaging Studies Finger X-Ray 04/06/22 14:38 IMPRESSION: Tiny avulsion fracture at the tuft of the distal phalanx of the fourth digit with overlying soft tissue laceration. Electronically Signed: Corby Otero MD at 15:11 EDT , Discharge Plan Triage Chief Complaint: Laceration ED Provider: Dontae Bucio Dx/Rx/DC Orders Clinical Impression: Avulsion of nail of left ring finger, Open fracture of tuft of distal phalanx of finger Instructions: ED Fracture, Finger, Open, ED Detached Fingernail or Toenail Prescriptions: New cephalexin [cephalexin] 500 mg capsule 500 mg PO Q6 Qty: 20 0RF No Action atorvastatin 20 mg tablet 20 mg PO QHS aspirin [Adult Low Dose Aspirin] 81 mg tablet,delayed release (DR/EC) 81 mg PO DAILY folic acid 1 mg tablet 1 mg PO DAILY omeprazole 20 mg tablet,delayed release (DR/EC) 20 mg PO DAILY lisinopril 20 mg tablet 20 mg PO DAILY oxycodone-acetaminophen 5-325 mg tablet 1 tab PO TID PRN Label Comments: TAKE 1 TABLET BY MOUTH THREE TIMES DAILY NEEDED methotrexate sodium 2.5 mg tablet 15 mg PO QWEEK Label Comments: TAKE 6 TABLETS orally once a week cholecalciferol (vitamin D3) [Vitamin D3] 125 mcg (5,000 unit) tablet 125 mcg PO DAILY Culturelle 10 billion cell capsule 1 cap PO DAILY amlodipine 10 mg tablet 10 mg PO DAILY Qty: 90 3RF atenolol 25 mg tablet 25 mg PO DAILY hydrochlorothiazide 25 mg tablet 25 mg PO DAILY Qty: 90 3RF Primary Care Provider: Martha Rosenthal Referrals: Martha Rosenthal DO [Primary Care Provider] - 10 Day for suture removal Disposition Disposition: Home, Self Care
[2022-04-06] MEDS: Bupivacaine Mpf 0.5% 30 ML VIAL INFILT (15:15)
[2022-04-06] MEDS: Diphth,Pertuss(Acell),Tet Vac 0.5 ML Vial IM (15:30)
== END 2022-04-06 16:05 | disposition home or self-care (01) ==
PROVIDERS: Emergency Provider Emergency Medicine; PCP Internal Medicine; Visit Provider Emergency Medicine
DX: S62.634B Displaced fracture of distal phalanx of right ring finger, initial encounter for open fracture (principal); W28.XXXA Contact with powered lawn mower, initial encounter; I10 Essential (primary) hypertension; E78.00 Pure hypercholesterolemia, unspecified; Z79.82 Long term (current) use of aspirin; Z79.899 Other long term (current) drug therapy; Z87.891 Personal history of nicotine dependence
CPT/HCPCS: 11730; 73140; 99283

== ENCOUNTER 2022-08-04 11:00 | Outpatient (RCR) | payer MEDICARE, OTHER, SELFPAY ==
--- NOTE | 2022-06-01 11:55 | HP.PTEVAL_ITS ---
Patient's Visit Information KAYKAY ABREU is a 71 year old M referred to Physical Therapy by Dr. Cedric Tai MD with a diagnosis of Reverse Total Shoulder 05/22/22. Date of Evaluation: 06/01/22 Physical Therapist: Georgina Zamarripa DPT - Visit Plan Frequency: 3x /Week Duration: 4 Weeks Plan: Left Reverse Total Shoulder 05/22/22- protocol in folder ([facility] Reverse Total Shoulder Protocol on website). HEP Given IE: Posture, Scapular Retractions, Pendulums, Biceps AROM, Jointer Machine, Table Walk away gently - Subjective Patient 05/22/22 Left Reverse Total Shoulder- had the Right one done Jun 2021- Stayed over night- headed home- has help at home. Worst: 03/20 Right now 6-12/18. Feels like an abscess tooth and if he moves it feels like it stabbed you. Agg: anything. Wears the sling all the time- takes it off to shower- then he is jodi dy to put it back on. Eases: putting the sling back on, Percocet. Has an ice machine but its painful. Best: 06/20. Pain is in the anterior shoulder and radiates into the chest and down to the elbow. No N/T in the finger. Does have some neck discomfort that comes and goes- muscle spasm 1-2x since surgery but nothing like prior. No BRODY, blurred vision or dizziness. Sleep in recliner- sleeps with an icepack on it-hard to get comfortable and isn't sleeping well-but does not normally sleep in bed. Fully I prior to surgery. Saw MD on Sunday- dissolvable stitches-looks good- took x-rays and told him to start rehab. Goals: get back to fully Indep and target shoot. PMHx: Only change in meds is increase dose of Percocet. No change in PMHx. - Objective Posture: FH, RS- increased guarding of the left UE with sling intact. Observation: incision healing well- no s/s of infection- does have bruising down the upper and forearm. Palpation: tender throughout anterior shoulder- medial border of the scapula- upper trap to the cervical spine. ROM: Elbow/Wrist/Hand: WFL- mild soreness with elbow flexion/extn, Shoulder: PROM: Flexion: 80 degrees, Abd: 90 degrees, IR: to belly, ER: neutral. Strength: Scap: fair minus- Shoulder isometric submax: 4/5 at neutral, Elbow: 4+/5, Wrist: 5/5 Jointer Machine: Left: 60 Right: 90 - Balance/Special Test Scores Quick DASH Score: 56.8175 - Goals Goal 1:: Patient will be I with HEP and progression Goal Time Frame: 4-6 Weeks Goal 2:: Patient will demo functional AROM of the left shoulder (as protocol allows) Goal Time Frame: 4-6 Weeks Goal 3:: Patient will maintain proper posture t/o tx session to demo increased scap s/s Goal Time Frame: 4-6 Weeks Goal 4:: Patient will report 80% improvement Goal Time Frame: 4-6 Weeks - Rehabilitation Potential Physical Therapy Diagnosis: Patient presents with hypomobility s/p Reverse Total Shoulder- he has decreased ROM, Scapular and UE strength/stabilization and muscular endurance leading to poor posture and decreased ability to perform ADL's. Rehabilitation Potential: Good - Anticipated Interventions Patient/Client Instruction: Educate patient on: Benefits of Fitness Program Therapeutic Exercise to Include: Strength training, Endurance training, Balance training, Coordination, Agility training, Body mechanics, Postural training, Flexibilty training, Passive ROM, Active ROM, Dynamic Lumbar Stabilization, Scapular Strength/Stabilization Cryotherapy (ice pack, ice massage): Yes Thermo therapy (hot pack): Yes Ultrasound (thermal/non thermal): No Thank you for the opportunity to evaluate your patient. For Medicare and Medicare HMO plans, please review the plan of care and approve it. It will need to be FAXED BACK to us at [phone] for Medicare purposes. For Medicare only, by signing this I certify the plan of care. Please let me know if there are questions or concerns regarding this plan of care. Physician Signature: Date:
--- NOTE | 2022-07-07 11:14 | HP.PTREVAL ---
Dr. Cedric Tai MD, It has been my pleasure to treat KAYKAY ABREU over the last 13 visits for Reverse Total Shoulder 05/22/22. Please see the progress note below for an update on the physical therapy plan of care! Subjective: Patient reports the should is doing good- the shoulder aches but doing exercises- more uncomfortable than pain. 5-6/10 depending on movement. Feels he needs more strength to continue improvement Objective/Function: Posture: good throughout0- no guarding of the left UE. ROM: Flexion: 160 degrees, Abd: 150 degrees, IR: belt line, ER: 30 degrees. Strength: Flexion: 25. Extn:27. Abd: 18. Add: 22. ER:5. IR: 11. Palpation: not tender to touch Plan Plan: 07/07/22: Cont 3x a week for 4 weeks with progression of protocol. Left Reverse Total Shoulder 05/22/22- protocol in folder ([facility] Reverse Total Shoulder Protocol on website). HEP Given IE: Posture, Scapular Retractions, Pendulums, Biceps AROM, Mixer Operator Hot Metal, Table Walk away gently Balance/Gait/Functional tests - Balance/Special Test Scores Quick DASH Score: 27.2725 Goals Goal 1:: Patient will be I with HEP and progression Goal Time Frame: 4-6 Weeks Goal 2:: Patient will demo functional AROM of the left shoulder (as protocol allows) Goal Time Frame: 4-6 Weeks Goal 3:: Patient will maintain proper posture t/o tx session to demo increased scap s/s Goal Time Frame: 4-6 Weeks Goal 4:: Patient will report 80% improvement Goal Time Frame: 4-6 Weeks Anticipated Interventions Patient/Client Instruction: Educate patient on: Benefits of Fitness Program Therapeutic Exercise to Include: Strength training, Endurance training, Balance training, Coordination, Agility training, Body mechanics, Postural training, Flexibilty training, Passive ROM, Active ROM, Dynamic Lumbar Stabilization, Scapular Strength/Stabilization Cryotherapy (ice pack, ice massage): Yes Thermo therapy (hot pack): Yes Ultrasound (thermal/non thermal): No Please do not hesitate to contact me at [phone] by phone or if you have questions or concerns regarding this new plan of care! Sincerely, Georgina Zamarripa DPT
--- NOTE | 2022-08-04 11:53 | HP.PTDCSUM_ITS ---
It has been my pleasure to treat KAYKAY ABREU referred by Dr. Cedric Tai MD, with the diagnosis of Reverse Total Shoulder 05/22/22 for a total of 24 visit(s). Discharge Date: Please see the following information for a summary of their discharge status. Subjective: Patient reports that he is really happy with the progress- he is not in pain but more fatigue. He is back to work in the 2nd week of August. He has a membership at [employer] and has no questions on continuation of exercises. Left snoulder Pain Intensity (Out of 10): 2 % Improvement: 75 Objective/Function: Posture: good throughout- no guarding of the left UE. ROM: Flexion: 180 degrees, Abd: 160 degrees, IR: belt line, ER: 50 degrees. Strength: Scap: fair minus, Isometric Strength: 4+/5, Elbow: 5/5 Palpation: not tender to touch Goal 1:: Patient will be I with HEP and progression Goal 2:: Patient will demo functional AROM of the left shoulder (as protocol allows) Goal 3:: Patient will maintain proper posture t/o tx session to demo increased scap s/s Goal 4:: Patient will report 80% improvement Plan: 08/04/22: Discharge to I HEP- encouraged to call if questions or concerns. 07/07/22: Cont 3x a week for 4 weeks with progression of protocol. Left Reverse Total Shoulder 05/22/22- protocol in folder ([facility] Reverse Total Shoulder Protocol on website). HEP Given IE: Posture, Scapular Retractions, Pendulums, Biceps AROM, Rate Inserter, Table Walk away gently If there are questions or concerns regarding this patient's physical therapy, please feel free to call me at [phone]. Thank you for the referral of this patient. Sincerely, Georgina Zamarripa, DPT Balance/Gait/Functional tests - Balance/Special Test Scores Quick DASH Score: 27.2725
== END 2022-08-04 13:08 | disposition home or self-care (01) ==
LOC: PT 11:00
PROVIDERS: PCP Internal Medicine; Referring Provider Orthopaedic Surgery; Visit Provider Orthopaedic Surgery
DX: Z96.612 Presence of left artificial shoulder joint (principal); M12.812 Other specific arthropathies, not elsewhere classified, left shoulder
CPT/HCPCS: 97110; 97140; 97162; 97164

== ENCOUNTER 2023-10-03 15:00 | Outpatient (RCR) | payer MEDICARE, OTHER, SELFPAY ==
--- NOTE | 2023-07-26 12:00 | HP.PTEVAL_ITS ---
Patient's Visit Information Visit Information Visit Information: KAYKAY ABREU is a 72 year old M referred to Physical Therapy by Dr. Cedric Tai MD with a diagnosis of S/P REVERSE ARTHROPLASTY OF RIGHT SHOULDER. Date of Evaluation: 07/26/23 Physical Therapist: Jose Freeman, PT, Cert MDT, OCS Visit Plan Frequency: 2x /Week Duration: 6-8 WEEKS Plan: S/P REVISION RTS WITH CUP ON 07/16/23 SEE MAK S/P REVERSE TSR SLING 4 WEEKS PT INTERVENTIONS INTIALLY PROM MANUAL THERAPY ,PROGRESS TO ARROM AND STRENGTHENING PER MAK,CP/MHP Subjective Subjective: This 72 y/o male presents to physical therapy with s/p reverse arthroplasty right shoulder. Patient had revision TSR on 07/16/[address] Tai at [facility]. Patient was d/c home with sling for 4weeks . Last Sunday07/20/23 recommended PT . Patient surgery with revision to replace cup went from 2 mm to 9mm . Patient August 14 . Patient burning pain . Patient has edema anterior aspect and severe ecchymosis.. Patient denies pain dull ache. Denies paresthesia/tingling. Patient had initial revere TSR 2 years ago. Most recently 2021 reverse TSR. Patient limitations with ADLS and housework tasks and self hygiene. Medication: precaution. Prior to surgery and post surgery x-rays. Sleeping okay . Patient goal to return to prior level of activity full ROM. SOCAIL: VOACTION: Cable Pain Right: Pain Intensity (Out of 10): 2 Pain Intensity Range: 10 Objective Objective: POSTURE: mild forward posture SKIN: ecchymosis ,note small opening draining EDEMA: mod edema anterior shoulder pocket ( Dr wheatley) PROM : shoulder flexion 100 degrees ,ER 30 degrees, Elbow /wrist WFL NEURO: denies paresthesia/tingling Balance/Special Test Scores Quick DASH Score: 70.4525 Goals Goal 1:: I with HEP for reverse TSR Goal Time Frame: 6-8 Weeks Goal 2:: Patient to improve AROM shoulder flexion/abduction by 130 degrees to improve function ADLS Goal Time Frame: 6-8 Weeks Goal 3:: Patient to improve peak force deltoid 10-15# force to improve ADLS and function Goal Time Frame: 6-8 Weeks Goal 4:: Patient to demonstrate 60% improvement with improved function with ADLS and housework tasks Goal Time Frame: 8-12 Weeks Goal 5:: Patient to improve quick dash by 5-10 points to improve QOL and function. Rehabilitation Potential Physical Therapy Diagnosis: This patient had revision TSR with replacing cup 07/16/23 with edema ,bruising ,decrease ROM and strength which impairs function and ADLS thus benefit from skilled PT Rehabilitation Potential: Good Anticipated Interventions Patient/Client Instruction: Educate patient on: Condition and Plan of Care For the Purpose of:: To decrease pain, To increase ROM, To improve muscle performance and motor function, To improve ability to perform ADL's, To increase tolerance to activity/condition/position, To improve ability of physical actions for home/community/work/leisure, To improve health of tissue, To decrease soft tissue restriction, To increase flexibility/ROM, To reduce risk of recurrence and To improve tolerance to ADL's Therapeutic Exercise to Include: Strength training, Flexibilty training, Passive ROM, Active ROM and Scapular Strength/Stabilization For the Purpose of:: To decrease pain, To increase ROM, To improve muscle performance and motor function, To improve ability to perform ADL's, To increase tolerance to activity/condition/position, To improve performance and independence with ADL's, To improve ability of physical actions for home/community/work/leisure, To improve health of tissue, To decrease soft tissue restriction, To increase flexibility/ROM, To assume or resume ADL's and To improve tolerance to ADL's Manual Therapy Techniques to Include: Passive ROM For the Purpose of:: To increase ROM, To improve health of tissue and To decrease soft tissue restriction Text: Thank you for the opportunity to evaluate your patient. For Medicare and Medicare HMO plans, please review the plan of care and approve it. It will need to be FAXED BACK to us at [phone] for Medicare purposes. For Medicare only, by signing this I certify the plan of care. Please let me know if there are questions or concerns regarding this plan of care. Physician Signature:_ Date:
--- NOTE | 2023-08-23 16:04 | HP.PTREVAL_ITS ---
Re-Evaluation Intro: Dr. Cedric Tai MD, It has been my pleasure to treat KAYKAY ABREU over the last 9 visits for S/P REVERSE ARTHROPLASTY OF RIGHT SHOULDER. Please see the progress note below for an update on the physical therapy plan of care! Subjective Subjective: Doing well Objective Objective/Function: AROM SHOULDER: shoulder flexion 140 degrees ,135 abd ,ER MMT: ( peak force) anterior 7.6 , lateral 7.5 * Will cont to benefit from skilled PT to improve strength and AROM ,patient has progressed with ROM and strength thus new goals have been established * Plan Plan Plan: S/P REVISION RTS WITH CUP ON 07/16/23 SEE PROTOCOFELIA S/P REVERSE TSR S/P 5WEEKS 08/19 PT INTERVENTIONS INTIALLY PROM MANUAL THERAPY ,PROGRESS TO ARROM AND STRENG THENING PER MAK,CP/MHP Balance/Gait/Functional tests Balance/Special Test Scores Quick DASH Score: 34.0900 Goals Goals Goal 1:: I with HEP for reverse TSR Goal Time Frame: 6-8 Weeks Goal Progress: Progressing Goal 2:: Patient to improve AROM shoulder flexion/abduction by 150 degrees to improve function ADLS( new goals) Goal Time Frame: 6-8 Weeks Goal 3:: Patient to improve peak force deltoid 10-15# force to improve ADLS and function Goal Time Frame: 6-8 Weeks Goal Progress: Progressing Goal 4:: Patient to demonstrate 80% improvement with improved function with ADLS and housework tasks(new goal,) Goal Time Frame: 8-12 Weeks Goal 5:: Patient to improve quick dash by 5-10 points to improve QOL and function. Goal Progress: Progressing Anticipated Interventions Anticipated Interventions Patient/Client Instruction: Educate patient on: Condition and Plan of Care For the Purpose of:: To decrease pain, To increase ROM, To improve muscle performance and motor function, To improve ability to perform ADL's, To increase tolerance to activity/condition/position, To improve ability of physical actions for home/community/work/leisure, To improve health of tissue, To decrease soft tissue restriction, To increase flexibility/ROM, To reduce risk of recurrence and To improve tolerance to ADL's Therapeutic Exercise to Include: Strength training, Flexibilty training, Passive ROM, Active ROM and Scapular Strength/Stabilization For the Purpose of:: To decrease pain, To increase ROM, To improve muscle performance and motor function, To improve ability to perform ADL's, To increase tolerance to activity/condition/position, To improve performance and independence with ADL's, To improve ability of physical actions for home/community/work/leisure, To improve health of tissue, To decrease soft tissue restriction, To increase flexibility/ROM, To assume or resume ADL's and To improve tolerance to ADL's Manual Therapy Techniques to Include: Passive ROM For the Purpose of:: To increase ROM, To improve health of tissue and To decrease soft tissue restriction Re-Evaluation Ending Re-evaluation ending: Please do not hesitate to contact me at [phone] by phone or if you have questions or concerns regarding this new plan of care! Sincerely, Jose Freeman, PT, Cert MDT, OCS
--- NOTE | 2023-09-20 16:29 | HP.PTREVAL ---
Re-Evaluation Intro: Dr. Cedric Tai MD, It has been my pleasure to treat KAYKAY ABREU over the last 15 visits for S/P REVERSE ARTHROPLASTY OF RIGHT SHOULDER. Please see the progress note below for an update on the physical therapy plan of care! Subjective Subjective: Seen happy with progress need to work on strength Objective Objective/Function: Objective/Function: AROM SHOULDER: shoulder flexion 150 degrees ,140 abd ,ER MMT: ( peak force) anterior 16.8 , lateral 15.5 * Will cont to benefit from skilled PT to improve strength and AROM ,patient has progressed with ROM and strength thus new goals have been established and goals are appropriate and adjusted* Plan Plan Plan: S/P REVISION RTS WITH CUP ON 07/16/23 SEE PROTOCAL S/P REVERSE TSR S/P 7WEEKS 09/02 Focus on strengthening PT INTERVENTIONS PROM MANUAL THERAPY ,PROGRESS TO ARROM AND STRENGTHENING PER MAK,CP/MHP Balance/Gait/Functional tests Balance/Special Test Scores Quick DASH Score: 31.8175 Goals Goals Goal 1:: I with HEP for reverse TSR Goal Time Frame: 6-8 Weeks Goal Progress: Progressing Goal 2:: Patient to improve AROM shoulder flexion/abduction by 150 degrees to improve function ADLS( new goals) Goal Time Frame: 6-8 Weeks Goal 3:: Patient to improve peak force deltoid 10-15# force to improve ADLS and function Goal Time Frame: 6-8 Weeks Goal Progress: Progressing Goal 4:: Patient to demonstrate 80% improvement with improved function with ADLS and housework tasks(new goal,) Goal Time Frame: 8-12 Weeks Goal 5:: Patient to improve quick dash by 5-10 points to improve QOL and function. Goal Progress: Progressing Anticipated Interventions Anticipated Interventions Patient/Client Instruction: Educate patient on: Condition and Plan of Care For the Purpose of:: To decrease pain, To increase ROM, To improve muscle performance and motor function, To improve ability to perform ADL's, To increase tolerance to activity/condition/position, To improve ability of physical actions for home/community/work/leisure, To improve health of tissue, To decrease soft tissue restriction, To increase flexibility/ROM, To reduce risk of recurrence and To improve tolerance to ADL's Therapeutic Exercise to Include: Strength training, Flexibilty training, Passive ROM, Active ROM and Scapular Strength/Stabilization For the Purpose of:: To decrease pain, To increase ROM, To improve muscle performance and motor function, To improve ability to perform ADL's, To increase tolerance to activity/condition/position, To improve performance and independence with ADL's, To improve ability of physical actions for home/community/work/leisure, To improve health of tissue, To decrease soft tissue restriction, To increase flexibility/ROM, To assume or resume ADL's and To improve tolerance to ADL's Manual Therapy Techniques to Include: Passive ROM For the Purpose of:: To increase ROM, To improve health of tissue and To decrease soft tissue restriction Re-Evaluation Ending Re-evaluation ending: Please do not hesitate to contact me at [phone] by phone or if you have questions or concerns regarding this new plan of care! Sincerely, Jose Freeman, PT, Cert MDT, OCS
--- NOTE | 2024-01-14 12:56 | HP.PTDCSUM ---
Discharge Summary D/C summary: It has been my pleasure to treat KAYKAY ABREU referred by Dr. Cedric Tai MD, with the diagnosis of S/P REVERSE ARTHROPLASTY OF RIGHT SHOULDER for a total of 19 visit(s). Discharge Date: Please see the following information for a summary of their discharge status. Subjective Subjective: Doing well Pain Right: Pain Intensity (Out of 10): 0 Overall Improvement % Improvement: 80 Objective Objective/Function: AROM SHOULDER: shoulder flexion 150 degrees ,140 abd ,ER MMT: ( peak force) anterior 16.8 , lateral 15.5 Goals Goal 1:: I with HEP for reverse TSR Goal Progress: Progressing Goal 2:: Patient to improve AROM shoulder flexion/abduction by 150 degrees to improve function ADLS( new goals) Goal 3:: Patient to improve peak force deltoid 10-15# force to improve ADLS and function Goal Progress: Progressing Goal 4:: Patient to demonstrate 80% improvement with improved function with ADLS and housework tasks(new goal,) Goal 5:: Patient to improve quick dash by 5-10 points to improve QOL and function. Goal Progress: Progressing Plan Plan: d/c \S/P REVISION RTS WITH CUP ON 07/16/23 SEE MAK S/P REVERSE TSR S/P 7WEEKS 09/02 Focus on strengthening PT INTERVENTIONS PROM MANUAL THERAPY ,PROGRESS TO ARROM AND STRENGTHENING PER DENNIS CORADO/MHP D/C Information d/c sentence: If there are questions or concerns regarding this patient's physical therapy, please feel free to call me at [phone]. Thank you for the referral of this patient. Sincerely, Jose Freeman, PT, Cert MDT, OCS Balance/Gait/Functional tests Balance/Special Test Scores Quick DASH Score: 31.8175 Improvement % Improvement: 80
== END 2023-10-03 19:00 | disposition home or self-care (01) ==
LOC: PT 15:00
PROVIDERS: PCP Internal Medicine; Referring Provider Orthopaedic Surgery; Visit Provider Orthopaedic Surgery
DX: Z96.611 Presence of right artificial shoulder joint (principal)
CPT/HCPCS: 97110; 97140; 97162

== ENCOUNTER → 2023-11-30 | Outpatient (CLI) | payer MEDICARE, OTHER, SELFPAY ==
--- NOTE | 2023-11-30 08:49 | CDU_ITS ---
Reason For Study: Carotid Atherosclerosis Rt. Velocities/BP Lt. Velocities/BP Prox CCA 76/14 cm/sec. Prox CCA 99/17 cm/sec. Mid CCA 88/16 cm/sec. Mid CCA 92/22 cm/sec. Dist CCA 79/19 cm/sec. Dist CCA 79/22 cm/sec. Prox ICA 61/17 cm/sec. Prox ICA 90/27 cm/sec. Mid ICA 75/24 cm/sec. Mid ICA 97/28 cm/sec. Dist ICA 67/21 cm/sec. Dist ICA 94/31 cm/sec. Rt. ICA/CCA = 0.9. Lt. ICA/CCA = 1.1. Prox ECA 73/9 cm/sec. Prox ECA 101/14 cm/sec. Rt. Vert. 45/12 cm/sec. Lt. Vert. 49/15 cm/sec. Right Extracranial There is heterogeneous, irregular atherosclerotic plaque noted in the right common carotid artery. There is intimal thickening but no significant atherosclerotic plaque noted in the right internal carotid artery. There is no significant atherosclerotic plaque noted in the right external carotid artery. Antegrade flow is noted in the right vertebral artery. Left Extracranial There is intimal thickening but no significant atherosclerotic plaque noted in the left common carotid artery. There is heterogeneous, irregular atherosclerotic plaque noted in the left internal carotid artery. There is heterogeneous, smooth atherosclerotic plaque noted in the left external carotid artery. Antegrade flow is noted in the left vertebral artery. Procedure Carotid Duplex 20841. This is a Carotid Duplex examination using B-mode, color flow and specral Doppler. Exam performed in department. VL/Carotid Duplex Ultrasound Interpretation Summary Intimal thickening at the proximal right internal carotid artery with less than 50% stenosis Less than 50% stenosis right external carotid artery Minimal irregular plaque at the proximal left internal carotid artery with less than 50% stenosis Less than 50% stenosis left external carotid artery Patent and antegrade vertebral arteries bilaterally Ordering Physician: Martha Rosenthal Referring Physician: Martha Rosenthal Performed By: Devika Mckeon, MICHAEL, RVT
== END | disposition home or self-care (01) ==
PROVIDERS: PCP Internal Medicine; Referring Provider Internal Medicine; Visit Provider Internal Medicine
DX: I65.23 Occlusion and stenosis of bilateral carotid arteries (principal)
CPT/HCPCS: 93880

== ENCOUNTER → 2024-10-13 | Outpatient (CLI) | payer MEDICARE, OTHER, SELFPAY ==
--- NOTE | 2024-10-13 09:56 | CDU_ITS ---
Reason For Study Reason For Study: Stenosis Rt. Velocities/BP Lt. Velocities/BP Prox CCA 77/17 cm/sec. Prox CCA 105/21 cm/sec. Mid CCA 99/15 cm/sec. Mid CCA 92/20 cm/sec. Dist CCA 74/20 cm/sec. Dist CCA 76/22 cm/sec. Prox ICA 70/19 cm/sec. Prox ICA 90/21 cm/sec. Mid ICA 74/19 cm/sec. Mid ICA 97/32 cm/sec. Dist ICA 170/45 cm/sec. Dist ICA 91/35 cm/sec. Rt. ICA/CCA = 1.7. Lt. ICA/CCA = 1.1. Prox ECA 89/15 cm/sec. Prox ECA 101/14 cm/sec. Rt. Vert. 35/11 cm/sec. Lt. Vert. 53/17 cm/sec. Right Extracranial There is heterogeneous, irregular atherosclerotic plaque noted in the right common carotid artery. There is heterogeneous, irregular atherosclerotic plaque noted in the right internal carotid artery. Rt ICA dives. There is no significant atherosclerotic plaque noted in the right external carotid artery. Antegrade flow is noted in the right vertebral artery. Left Extracranial There is intimal thickening but no significant atherosclerotic plaque noted in the left common carotid artery. There is heterogeneous, irregular atherosclerotic plaque noted in the left internal carotid artery. There is heterogeneous, smooth atherosclerotic plaque noted in the left external carotid artery. Antegrade flow is noted in the left vertebral artery. Procedure Carotid Duplex 20595. This is a Carotid Duplex examination using B-mode, color flow and specral Doppler. Exam performed in department. VL/Carotid Duplex Ultrasound Interpretation Summary Moderate (50-69%) stenosis right extracranial internal carotid. Mild (<50%) stenosis left extracranial internal carotid. Patent and antegrade vertebrals bilaterally. Ordering Physician: Martha Rosenthal Referring Physician: Martha Rosenthal Performed By: Devika Mckeon, RDCS, RVT
== END | disposition home or self-care (01) ==
LOC: CVS 09:53
PROVIDERS: PCP Internal Medicine; Referring Provider Internal Medicine; Visit Provider Internal Medicine
DX: I65.23 Occlusion and stenosis of bilateral carotid arteries (principal)
CPT/HCPCS: 93880

== ENCOUNTER → 2025-05-20 | Outpatient (CLI) | payer MEDICARE, OTHER, SELFPAY ==
[2025-05-20 09:33] LABS: Mucous, Urine 0 SEEN /hpf (<or=2+); Squamous Epithelial Cells - UA 0 SEEN /hpf (0-5)
[2025-05-20 10:23] LABS: Color, Urine Yellow (Yellow); Glucose, Dipstick Normal (Normal); Ketone-Dipstick Negative (Negative); Leukocyte Esterase-Dipstick Negative /ul (Negative); Nitrite-Dipstick Negative (Negative); Occult Blood-Urine 50 /ul (Negative); Protein-Dipstick 30 mg/dl (Negative); Specific Gravity, Urine 1.015 (1.002-1.030); Urine Bilirubin Dipstick Negative (Negative)
[2025-05-20 10:24] LABS: Hematocrit 38.8 % (40-54); Hemoglobin 13.2 g/dL (13.0-16.5); Immature Granulocytes Count 0.480 X10^3/uL (0.0-0.0); Mean Corp Hgb Conc 34.0 g/dL (32-36); Mean Corpuscular Volume 93.5 fL (80-94); Mean Platelet Vol. 9.7 fl (6.2-12.0); NRBC Flagged by Analyzer 0.2 % (0-5); Platelet Count 161 K/mm3 (150-450); RBC Distribution Width CV 12.0 % (11.6-14.6); RBC Distribution Width SD 41.8 fl (35.1-43.9); Red Blood Count 4.15 M/mm3 (4.6-6.2); White Blood Count 13.2 K/mm3 (4.4-11.0)
[2025-05-20 10:41] LABS: Creatinine, Urine (random) 178.00 mg/dL (39.00-259.00); Microalbumin,Random Urine 20.8 mg/L (<20 mg/L)
[2025-05-20 10:43] LABS: Red Blood Cells-Urine 10-25 SEEN /hpf (0-5)
[2025-05-20 11:04] LABS: AST(SGOT) 26 U/L (<=37); Alanine Aminotransfer ALT/SGPT 48 U/L (<=46); Albumin, Serum 4.2 g/dL (3.4-4.8); Alkaline Phosphatase 47 U/L (40-129); Anion Gap 10 (5-15); BUN 20 mg/dL (4-19); BUN/Creat Ratio 15.7 RATIO (10-20); Calcium,Total 9.1 mg/dL (7.6-11.0); Carbon Dioxide 28.3 mmol/L (21.0-32.0); Chloride 101 mmol/L (98-108); Cholesterol 143 mg/dL (<=200); Globulin 2.2 g/dL (2.2-4.2); Glucose 97 mg/dL (70-99); Low Density Lipoprotein Calc. 56 mg/dL; Potassium 4.0 mmol/L (3.3-5.1); Triglycerides 108 mg/dL; Very Low Density Lipoprotein 22 mg/dL (5-40); Vitamin B12 1379 pg/mL (180-914); Vitamin D,25 Hydroxy 34.0 ng/mL (30-100); cholesterol:hdl ratio screen 2.11
== END | disposition home or self-care (01) ==
LOC: MTLAB 09:13
PROVIDERS: PCP Internal Medicine; Referring Provider Internal Medicine; Visit Provider Internal Medicine
DX: I12.9 Hypertensive chronic kidney disease with stage 1 through stage 4 chronic kidney disease, or unspecified chronic kidney disease (principal); E78.00 Pure hypercholesterolemia, unspecified; E53.8 Deficiency of other specified B group vitamins; N18.1 Chronic kidney disease, stage 1; E55.9 Vitamin D deficiency, unspecified; R53.83 Other fatigue
CPT/HCPCS: 36415; 80053; 80061; 81001; 82043; 82306; 82570; 82607; 84443; 85025